=== PATIENT | female | born 1995 | race Caucasian/White ===

== ENCOUNTER 2025-08-22 10:08 | Emergency (ER) | payer OTHER, SELFPAY ==
[2025-08-22] VITALS (7 sets, daily range): BP systolic 108–140; BP diastolic 65–101; BMI 26.7
--- NOTE | 2025-08-22 10:20 | ED.GENMED ---
History of Present Illness
General
Chief Complaint: Withdrawal Symptoms
Source: patient, ambulance crew and other (half-way guards)
Exam Limitations: none
Time Seen by Provider: 08/22/25 10:12
Nursing documentation reviewed up to this point in time: agreed with
History of Present Illness
History of Present Illness:
Note:
CHIEF COMPLAINT(S)
Withdrawal symptoms likely due to substance use.
HISTORY OF PRESENT ILLNESS
The patient is a 30-year-old female presenting with symptoms suggestive of withdrawal. She is 17 weeks and has a history of using heroin and smoking illicit substances. She reports using methadone and has a history of previous pregnancies.
The patient mentions having an ultrasound at a medical facility recently, specifically the previous afternoon, and is currently experiencing withdrawal symptoms. She notes smoking substances yesterday afternoon and describes experiencing withdrawal
currently.
SOCIAL DETERMINANTS AFFECTING HEALTH
The patient reports use of heroin and smoking as well as previous use of intravenous drugs. She is currently dealing with substance use issues while being .
REVIEW OF SYSTEMS
- General: Withdrawal symptoms.
- : 17 weeks gestation.
PHYSICAL EXAM
General: appears uncomfortable, vomit in hair
Skin: Warm, dry.
Head: Normocephalic, atraumatic.
Neck: Supple, trachea midline.
Eyes, Ears, nose, mouth and throat: Oral mucosa moist.
Cardiovascular: Normal peripheral perfusion, No edema.
Respiratory: Respirations are non-labored.
Gastrointestinal: Abdomen nondistended.
Back: Normal range of motion, Normal alignment.
Musculoskeletal: Normal range of motion, normal strength.
Neurological: Alert and oriented to person, place, time, and situation, No focal neurological deficit observed.
Psychiatric: Cooperative, appropriate mood & affect.
PROBLEM LIST
Acute:
- Substance withdrawal symptoms
- management with substance use
CHRONIC MEDICAL CONDITIONS SIGNIFICANTLY AFFECTING CARE
- Substance use disorder
DIFFERENTIAL DIAGNOSIS
The Differential Diagnosis includes, in no particular order and is not limited to:
- Substance withdrawal
- complications
- Acute stress reaction
- Anxiety disorder
- Depressive disorder
- Opioid use disorder
- Tobacco use disorder
- Dehydration
- Electrolyte imbalance
- -related hormone fluctuations
CARE-UPDATE
08/22/25 - 15:31
The 30-year-old female at 17 weeks of is cleared for discharge after confirming a viable intrauterine via ultrasound. She has been successfully stabilized on a 16 mg dose of Subutex and is to be discharged to half-way with a
prescription for Subutex to continue her treatment regimen.
Disposition:
SUMMARY OF ENCOUNTER
The patient is a 30-year-old female at 17 weeks of gestation, who presented to the emergency department with symptoms indicative of opiate withdrawal. She has a history of heroin use and has been stabilized with Subutex (buprenorphine). Management
in the emergency department focused on stabilizing her withdrawal symptoms and ensuring her is progressing normally. It was confirmed that she has a viable intrauterine through recent ultrasound imaging.
DISPOSITION
Discharge to half-way.
ASSESSMENT
The patient is experiencing opiate withdrawal symptoms while being 17 weeks .
PLAN
To continue stabilizing her on a 16 mg dose of Subutex (buprenorphine) and provide patient education about the importance of adherence to the medication regimen during and after her return to half-way. She should be provided with instructions related
to Subutex and ensure reliable follow-up with obstetric care as permitted by half-way authorities.
PATIENT EDUCATION AND COUNSELING
The patient was given instructions on the importance of continuing with Subutex to manage opiate withdrawal and the significant role it plays in maintaining her and her unborn ruby health. She was advised to ensure a reliable support system is
available in half-way to aid with withdrawal management and follow-up with obstetric care as allowed.
FOLLOW-UP INSTRUCTIONS
To follow up with an criminal researcher as permitted by the half-way facility.
MEDICATION RECONCILIATION
1. Buprenorphine (Subutex) 16 mg prescribed to continue on discharge.
MEDICAL DECISION MAKING
- Number and Complexity of Problems Addressed: Chronic conditions affecting care�substance use disorder, at 17 weeks with ongoing opioid withdrawal management.
- Complexity of Data Reviewed:
Care significantly affected by Social Determinants of Health: Substance use issues and .
DIAGNOSIS
- Opiate Withdrawal (ICD-10: F11.23)
- 17 Weeks (supervision of normal , second trimester) (ICD-10: Z34.82)
Phy Exam
Physical Exam
Physical Exam:
.
Course
Orders/Labs/Results
Orders:
Orders
08/22/25 10:21
IV Insert/Care/Rem.- Treatment PRN
08/22/25 10:23
Lactated Ringers [Lr] 1,000 ml IV BOLUS
08/22/25 10:26
Buprenorphine [Subutex] 2 mg SL NOW STA
08/22/25 10:27
US Limited Urgent
Comment:
Reason For Exam: opiate withdrawal, vomiting, 17 wks preg
08/22/25 10:55
Complete Blood Count/With Diff Urgent
Comprehensive Metabolic Panel Urgent
08/22/25 13:08
Buprenorphine [Subutex] 16 mg SL NOW STA
Abnormal Lab Results
08/22/25
10:55
WBC 11.5 H 10^3/uL
(4.8-10.8)
RBC 3.32 L 10^6/uL
(4.20-5.40)
Hgb 10.2 L g/dL
(12.0-16.0)
Hct 29.7 L %
(37.0-47.0)
Plt Count 408 H 10^3/uL
(130-400)
Abs Immat Gran (auto) 0.1 H 10^3/uL
(0-0.05)
Absolute Neuts (auto) 10.2 H 10^3/uL
(1.4-6.5)
Absolute Lymphs (auto) 1.0 L 10^3/uL
(1.2-3.4)
Immature Gran % 0.6 H %
(0-0.5)
Neutrophils % 88.3 H %
(42.2-75.2)
Lymphocytes % 8.7 L %
(20.5-51.1)
Creatinine 0.4 L mg/dL
(0.6-1.0)
Glucose 105 H mg/dl
(70-99)
08/22/25 10:55
08/22/25 10:55
Vital Signs
Initial and Last Documented VS:
Initial Vital Signs
Temp Pulse Resp BP Pulse Ox
98.7 F 86 16 123/101 99
08/22/25 10:11 08/22/25 10:11 08/22/25 10:11 08/22/25 10:11 08/22/25 10:11
Last Documented Vital Signs
Temp Pulse Resp BP Pulse Ox
98.7 F 83 17 129/66 99
08/22/25 10:11 08/22/25 15:00 08/22/25 15:00 08/22/25 15:00 08/22/25 15:00
*Pulse Oximetry
SaO2: 99
Oxygen Mode of Delivery: Room air
Patient hypoxic: no
*Critical Care Note
Total Time (30-74mins, 75-104mins- exclusive of procedures): Not Applicable
ED Attending Note
-
Portions of this chart may have been created with voice recognition software.� Occasional wrong word or��sound alike� substitutions may have occurred due to the inherent limitations of voice recognition software.
Discharge Plan
Departure
Patient Disposition: Retirement
Date of Disposition: 08/22/25
Time of Disposition: 15:06
Patient with high blood pressure during this ER visit?: Yes
Condition: Good
Discharge Problem:
Opiate withdrawal,
Instructions: - The Fifth Month, Opioid withdrawal - ED (DC)
Prescriptions:
New
buprenorphine HCl 8 mg tablet, sublingual
16 mg sublingual DAILY Qty: 14 0RF
No Action
clonidine HCl 0.1 mg Tablet
0.1 mg PO DIRECTED
Rx Instructions:
0.1mg tid on days 08/22/25-/08/25/25 then 0.1mg bid on days 08/26/25-08/27/25 then 0.05mg bid on days 08/25-08/29/25
ondansetron HCl [Zofran] 4 mg Tablet
4 mg PO TIDPRN PRN (Reason: nausea)
loperamide 2 mg Tablet
2 mg PO TIDPRN PRN (Reason: diarrhea)
PNV no.95-ferrous fumarate-FA [] 28 mg iron- 800 mcg Tablet
1 tab PO DAILY
Referrals:
[facility], [facility] - Call in 1-3 days for appt
[facility], [Active, Gynecology] - Call in 1-3 days for appt
Activity Restrictions/Additional Instructions:
Recommend Subutex 16 mcg twice daily to prevent opiate withdrawal
Interventions
Interventions:
*Risk Screen - Suicide Last Done: 08/22/25 10:22
*General Assessment Last Done: 08/22/25 10:22
*Neglect/Abuse Screening Last Done: 08/22/25 10:22
*ED- Fall Risk Assessment Last Done: 08/22/25 10:24
*ED COVID-19 Vaccine History Last Done: 08/22/25 10:22
ED- Neurological Assessment Last Done: 08/22/25 10:26
ED-Psychological Assessment Last Done: 08/22/25 10:26
Discharge Date and Time
Print Language: ESTONIAN
[2025-08-22] MEDS: SUBUTEX 2 MG SL (10:31)
[2025-08-22] MEDS: LR 1000 IV (10:56)
[2025-08-22 11:02] LABS: Hematocrit 29.7 % (37.0-47.0); Hemoglobin 10.2 g/dL (12.0-16.0); Mean Corp Hgb Conc. 34.3 g/dL (33.0-37.0); Mean Corpuscular Volume 89.5 fL (81.0-99.0); Nucleated Red Blood Cells % 0 %; Platelet Count 408 10^3/uL (130-400); Red Cell Dist. Width 12.8 % (11.5-14.5)
[2025-08-22 11:38] LABS: ALT (SGPT) 20 U/L (0-35); AST (SGOT) 21 U/L (14-36); Albumin 3.7 g/dl (3.5-5.0); Alkaline Phosphatase 119 U/L (38-126); Blood Urea Nitrogen 8 mg/dl (7-17); Calcium 9.9 mg/dl (8.4-10.2); Carbon Dioxide 25 mmol/L (22-30); Chloride 106 mmol/L (98-107); Estimated Creatinine Clearance 125 ml/min; Glucose 105 mg/dl (70-99); Potassium 3.9 mmol/L (3.5-5.1); Sodium 138 mmol/L (135-145); Total Protein 7.2 g/dl (6.3-8.2); eGFR > 60.00
[2025-08-22] MEDS: SUBUTEX 16 MG SL (13:32)
== END 2025-08-22 16:36 ==
LOC: EMR 10:08
PROVIDERS: EMERGENCY PHYSICIAN Emergency Medicine
DX: O99.322 Drug use complicating pregnancy, second trimester (principal); F11.23 Opioid dependence with withdrawal; Z3A.17 17 weeks gestation of pregnancy
CPT/HCPCS: 96360; 99284; 76815; 80053; 85025

== ENCOUNTER 2025-08-25 03:16 | Emergency (ER) | payer OTHER, SELFPAY ==
[2025-08-25] VITALS (9 sets, daily range): BP systolic 115–139; BP diastolic 69–95
[2025-08-25] MEDS: ZOFRAN 4 MG IV (04:27)
[2025-08-25 04:36] LABS: Hematocrit 33.3 % (37.0-47.0); Hemoglobin 11.4 g/dL (12.0-16.0); Mean Corp Hgb Conc. 34.2 g/dL (33.0-37.0); Mean Corpuscular Volume 91.5 fL (81.0-99.0); Nucleated Red Blood Cells % 0 %; Platelet Count 376 10^3/uL (130-400); Red Cell Dist. Width 13.1 % (11.5-14.5)
--- NOTE | 2025-08-25 04:40 | ED.GENMED ---
History of Present Illness
General
Chief Complaint: Problems
Source: patient
Exam Limitations: none
Time Seen by Provider: 08/25/25 03:33
Nursing documentation reviewed up to this point in time: agreed with
History of Present Illness
History of Present Illness:
30 y/o F 17 weeks preg
from snf
vag bleeding tonight just about 1 hour ago, soaked thruogh underwear sponateneously
no pain
no lightheadedness
no clots
pt was here 3 days ago for opiate withdrawal
she was spotting then too
had US cofirming IUP
on buprenorphine
Review of Systems
Review of Systems
Allergies reviewed?: Yes
All Other Systems: Not applicable
Phy Exam
Physical Exam
Physical Exam:
GENERAL: Alert , in no apparent distress
EYE: pupils equal and reactive
NECK: Supple
ENT: o/p clr, mmm.
CARDIAC: Regular rate and rhythm .
LUNGS: Clear breath sounds bilaterally, no acute respiratory distress, no wheezes/rales/rhonchi
ABDOMEN: Soft, without focal tenderness, no r/g, no cvat, normal bowel sounds
: mild blood in vault, dark red, no clots
ex os fingertip int os close
dno tendnrees
no lacerations
NEUROLOGICAL: Alert and oriented, no focal neuro deficits
SKIN: Warm and dry, skin intact.
MUSCULOSKELETAL: No edema, well perfused. neg jacobo's sign
PSYCH: Normal and appropriate interaction.
Course
Orders/Labs/Results
Orders:
Orders
08/25/25 03:33
US 2nd/3rd Trimester Urgent
Comment:
Reason For Exam: 17 weeks preg bleeding
08/25/25 04:18
ABO [Blood Group&Type] Urgent
Gel Atypical Antibody Screen Urgent
BBK Wristband Number:
Complete Blood Count/With Diff Urgent
Comprehensive Metabolic Panel Urgent
08/25/25 04:22
Ondansetron Injectable [Zofran] 4 mg IV NOW STA
08/25/25 05:43
Rho (D) Immune Globulin [Rhogam] 300 mcg IM ONCE ONE
08/25/25 05:44
* Blood Bank Products Urgent
Blood Bank Products: *Rhogam - Full Dose
Quantity: 300mg
Transfuse Today: Yes
Reason: Other
Other reason: Vaginal bleeding/miscarriage
08/25/25 05:46
Add On- LAB Urgent
Tests Added?: Type+Screen
Abnormal Lab Results
08/25/25
04:18
RBC 3.64 L 10^6/uL
(4.20-5.40)
Hgb 11.4 L g/dL
(12.0-16.0)
Hct 33.3 L %
(37.0-47.0)
MCH 31.3 H pg
(27.0-31.0)
Abs Immat Gran (auto) 0.1 H 10^3/uL
(0-0.05)
Immature Gran % 1.0 H %
(0-0.5)
Sodium 134 L mmol/L
(135-145)
Creatinine 0.4 L mg/dL
(0.6-1.0)
08/25/25 04:18
08/25/25 04:18
Vital Signs
Initial and Last Documented VS:
Initial Vital Signs
Temp Pulse Resp BP Pulse Ox
36.6 C 67 16 132/92 96
08/25/25 03:22 08/25/25 03:22 08/25/25 03:22 08/25/25 03:22 08/25/25 03:22
Last Documented Vital Signs
Temp Pulse Resp BP Pulse Ox
36.6 C 69 12 115/69 95
08/25/25 03:22 08/25/25 04:30 08/25/25 04:30 08/25/25 04:00 08/25/25 04:41
Information
Weeks gestation: Weeks: (17)
Location: Location:
MDM/Problems Addressed
Differential Diagnosis Includes:
threatened ab, placenta previa
MDM/Problems Addressed:
30 y/o F
here with vag bleeing in preg 17 weeks
unknown RH status
bleeding is mild here
os closed
stsbale vitals, bp was 130/80 and came down
hg sable
US shows no previa, os closed
d/w dr. randall
confirm Rh status then d/c back to snf, pelvic rest
08/25/2025 0559 AM
Rh-. Patient confirms she was not given RhoGAM during this yet. A dose of RhoGAM ordered after consultation with CONVEYOR WORKER. Discharged back to snf after
*Pulse Oximetry
SaO2: 95
Oxygen Mode of Delivery: Room air
Patient hypoxic: no
*Critical Care Note
Total Time (30-74mins, 75-104mins- exclusive of procedures): Not Applicable
ED Attending Note
-
Portions of this chart may have been created with voice recognition software.� Occasional wrong word or��sound alike� substitutions may have occurred due to the inherent limitations of voice recognition software.
Discharge Plan
Departure
Patient Disposition: Intermediate
Date of Disposition: 08/25/25
Time of Disposition: 05:45
Patient with high blood pressure during this ER visit?: No
Condition: Fair
Covid-19: Not Applicable
Discharge Problem:
Threatened miscarriage
Instructions: Threatened Miscarriage (DC)
Prescriptions:
No Action
clonidine HCl 0.1 mg Tablet
0.1 mg PO DIRECTED
Rx Instructions:
0.1mg tid on days 08/22/25-/08/25/25 then 0.1mg bid on days 08/26/25-08/27/25 then 0.05mg bid on days 08/25-08/29/25
ondansetron HCl [Zofran] 4 mg Tablet
4 mg PO TIDPRN PRN (Reason: nausea)
loperamide 2 mg Tablet
2 mg PO TIDPRN PRN (Reason: diarrhea)
PNV no.95-ferrous fumarate-FA [] 28 mg iron- 800 mcg Tablet
1 tab PO DAILY
buprenorphine HCl 8 mg tablet, sublingual
16 mg sublingual DAILY Qty: 14 0RF
Referrals:
UNKNOWN,NO INTERVIEW [Family Provider]
Activity Restrictions/Additional Instructions:
YOUR ULTRASOUND SHOWS YOUR BABY HAS NORMAL HEART RATE
THERE IS NO OBVIOUS CAUSE FOR YOUR BLEEDING
PELVIC REST (NOTHING IN VAGINA)
You were given a dose of RhoGAM because you are Rh-
FOLLOW UP WIHT OB
Interventions
Interventions:
*Risk Screen - Suicide Last Done: 08/25/25 03:28
*General Assessment Last Done: 08/25/25 03:23
*Neglect/Abuse Screening Last Done: 08/25/25 03:28
*ED- Fall Risk Assessment Last Done: 08/25/25 03:28
*ED COVID-19 Vaccine History Last Done: 08/25/25 03:28
ED-Female Genitourinary Assessment Last Done: 08/25/25 03:34
Discharge Date and Time
Print Language: HEBREW
[2025-08-25 04:56] LABS: ALT (SGPT) 18 U/L (0-35); AST (SGOT) 21 U/L (14-36); Albumin 3.6 g/dl (3.5-5.0); Alkaline Phosphatase 97 U/L (38-126); Blood Urea Nitrogen 9 mg/dl (7-17); Calcium 9.5 mg/dl (8.4-10.2); Carbon Dioxide 23 mmol/L (22-30); Chloride 105 mmol/L (98-107); Glucose 88 mg/dl (70-99); Potassium 4.0 mmol/L (3.5-5.1); Sodium 134 mmol/L (135-145); Total Protein 7.1 g/dl (6.3-8.2); eGFR > 60.00
--- NOTE | 2025-08-25 06:27 | ED.GENMED ---
History of Present Illness
General
Chief Complaint: Problems
Time Seen by Provider: 08/25/25 03:33
History of Present Illness
History of Present Illness:
EE MDM
Phy Exam
Physical Exam
Physical Exam:
SEE MDM
Course
Orders/Labs/Results
Orders:
Orders
08/25/25 03:33
US 2nd/3rd Trimester Urgent
Comment:
Reason For Exam: 17 weeks preg bleeding
08/25/25 04:18
ABO [Blood Group&Type] Urgent
Gel Atypical Antibody Screen Urgent
BBK Wristband Number:
Complete Blood Count/With Diff Urgent
Comprehensive Metabolic Panel Urgent
08/25/25 04:22
Ondansetron Injectable [Zofran] 4 mg IV NOW STA
08/25/25 05:43
Rho (D) Immune Globulin [Rhogam] 300 mcg IM ONCE ONE
08/25/25 05:44
* Blood Bank Products Urgent
Blood Bank Products: *Rhogam - Full Dose
Quantity: 300mg
Transfuse Today: Yes
Reason: Other
Other reason: Vaginal bleeding/miscarriage
08/25/25 05:46
Add On- LAB Urgent
Tests Added?: Type+Screen
Abnormal Lab Results
08/25/25
04:18
RBC 3.64 L 10^6/uL
(4.20-5.40)
Hgb 11.4 L g/dL
(12.0-16.0)
Hct 33.3 L %
(37.0-47.0)
MCH 31.3 H pg
(27.0-31.0)
Abs Immat Gran (auto) 0.1 H 10^3/uL
(0-0.05)
Immature Gran % 1.0 H %
(0-0.5)
Sodium 134 L mmol/L
(135-145)
Creatinine 0.4 L mg/dL
(0.6-1.0)
Antibody Screen Positive A
(Negative)
08/25/25 04:18
08/25/25 04:18
Vital Signs
Initial and Last Documented VS:
Initial Vital Signs
Temp Pulse Resp BP Pulse Ox
36.6 C 67 16 132/92 96
08/25/25 03:22 08/25/25 03:22 08/25/25 03:22 08/25/25 03:22 08/25/25 03:22
Last Documented Vital Signs
Temp Pulse Resp BP Pulse Ox
36.6 C 88 16 122/88 96
08/25/25 03:22 08/25/25 06:00 08/25/25 06:00 08/25/25 06:00 08/25/25 06:00
Information
Weeks gestation: Weeks: (17)
Location: Location:
*Pulse Oximetry
SaO2: 96
Oxygen Mode of Delivery: Room air
Patient hypoxic: no (9*6)
*Critical Care Note
Total Time (30-74mins, 75-104mins- exclusive of procedures): Not Applicable
ED Attending Note
-
Portions of this chart may have been created with voice recognition software.� Occasional wrong word or��sound alike� substitutions may have occurred due to the inherent limitations of voice recognition software.
Discharge Plan
Departure
Patient Disposition: Halfway
Date of Disposition: 08/25/25
Time of Disposition: 05:45
Patient with high blood pressure during this ER visit?: No
Condition: Fair
Covid-19: Not Applicable
Discharge Problem:
Threatened miscarriage
Instructions: Threatened Miscarriage (DC)
Prescriptions:
No Action
clonidine HCl 0.1 mg Tablet
0.1 mg PO DIRECTED
Rx Instructions:
0.1mg tid on days 08/22/25-/08/25/25 then 0.1mg bid on days 08/26/25-08/27/25 then 0.05mg bid on days 08/25-08/29/25
ondansetron HCl [Zofran] 4 mg Tablet
4 mg PO TIDPRN PRN (Reason: nausea)
loperamide 2 mg Tablet
2 mg PO TIDPRN PRN (Reason: diarrhea)
PNV no.95-ferrous fumarate-FA [] 28 mg iron- 800 mcg Tablet
1 tab PO DAILY
buprenorphine HCl 8 mg tablet, sublingual
16 mg sublingual DAILY Qty: 14 0RF
Referrals:
UNKNOWN,NO INTERVIEW [Family Provider]
Activity Restrictions/Additional Instructions:
YOUR ULTRASOUND SHOWS YOUR BABY HAS NORMAL HEART RATE
THERE IS NO OBVIOUS CAUSE FOR YOUR BLEEDING
PELVIC REST (NOTHING IN VAGINA)
You were given a dose of RhoGAM because you are Rh-
FOLLOW UP WIHT OB
Interventions
Interventions:
*Risk Screen - Suicide Last Done: 08/25/25 03:28
*General Assessment Last Done: 08/25/25 03:23
*Neglect/Abuse Screening Last Done: 08/25/25 03:28
*ED- Fall Risk Assessment Last Done: 08/25/25 03:28
*ED COVID-19 Vaccine History Last Done: 08/25/25 03:28
ED-Female Genitourinary Assessment Last Done: 08/25/25 03:34
Discharge Date and Time
Print Language: UGANDAN
[2025-08-25] MEDS: RHOGAM 300 MCG IM (08:44)
== END 2025-08-25 08:55 ==
LOC: EMR 03:16
PROVIDERS: Physician Assistant; EMERGENCY PHYSICIAN Emergency Medicine
DX: O20.0 Threatened abortion (principal); O36.0920 Maternal care for other rhesus isoimmunization, second trimester, not applicable or unspecified; Z29.13 Encounter for prophylactic Rho(D) immune globulin; Z3A.18 18 weeks gestation of pregnancy
CPT/HCPCS: 99284; 96374; 96372; 76805; 80053; 85025; 86850; 86870; 86900; 86901; J2790

== ENCOUNTER 2025-08-26 10:13 | Emergency (ER) | payer OTHER, SELFPAY ==
[2025-08-26 10:30] VITALS: BP 131/85; BMI 21.0
--- NOTE | 2025-08-26 10:41 | ED.GENMED ---
History of Present Illness
General
Chief Complaint: Vaginal Bleeding
Source: patient
Exam Limitations: none
Time Seen by Provider: 08/26/25 10:18
Nursing documentation reviewed up to this point in time: agreed with
History of Present Illness
History of Present Illness:
Note:
CHIEF COMPLAINT(S)
Bleeding and need for prescription management.
HISTORY OF PRESENT ILLNESS
The patient, a 30-year-old female, presents with a complaint of bleeding. She reports changing pads every two to three hours, but is not soaking through them. The bleeding is consistent with her previous experiences and has not shown any new or
concerning changes. Additionally, the patient had a recent consultation and was informed that the bleeding might persist for a short while.
The patient has been utilizing a prescription for Subutex, which was issued seven days ago. There is concern about continuity of prescription, and she is worried about potential withdrawal symptoms if medication is not continued. The patient states
that previous dose reductions have not been effective in managing her withdrawal symptoms.
The patient also mentioned prior treatment with Rho(D) immune globulin (RhoGAM) due to blood type incompatibility and the presence of antibodies. An ultrasound was conducted recently, but she is unclear about the need for another unless necessary.
SOCIAL DETERMINANTS AFFECTING HEALTH
The patient is concerned about her ability to continue accessing her medication and is planning to follow up with a local provider ([facility]). This context suggests a reliance on a specific healthcare system for her prescriptions and management.
PHYSICAL EXAM
General: Alert, no acute distress.
Skin: Warm, dry.
Head: Normocephalic, atraumatic.
Neck: Supple, trachea midline.
Eye Ears, Nose, Mouth, and Throat: Oral mucosa moist.
Cardiovascular: Normal peripheral perfusion, no edema.
Respiratory: Respirations are non-labored.
Gastrointestinal: Abdomen nondistended.
Back: Normal range of motion, normal alignment.
Musculoskeletal: Normal range of motion, normal strength.
Neurological: Alert and oriented to person, place, time, and situation, no focal neurological deficit observed.
Psychiatric: Cooperative, appropriate mood & affect.
PROBLEM LIST
Acute:
- Vaginal bleeding
- Possible withdrawal management from Subutex
Chronic:
- Antibody presence due to blood type incompatibility
PLAN
1. Continue monitoring the bleeding and ensure that it does not worsen.
2. Prescription of Subutex to be extended for seven more days to prevent withdrawal symptoms.
3. Follow-up planned with local provider ([facility]) for continued management.
4. Observation related to RhoGAM and blood compatibility to be maintained, with additional screening if necessary in future interventions.
DIFFERENTIAL DIAGNOSIS
The differential diagnosis includes, in no particular order and is not limited to:
1. Dysfunctional Uterine Bleeding
2. Menometrorrhagia
3. Coagulation Disorder
4. -related Bleeding
5. Medication-induced Bleeding
6. Endometrial Polyp
7. Subchorionic Hemorrhage
8. Infection (e.g., endometritis)
9. Cervical Lesion
10. Blood Type Incompatibility Reaction
Note:
CARE-UPDATE
08/26/25 - 14:39
Viable intrauterine confirmed via ultrasound. No signs of bleeding or placenta previa observed. Patient stable and cleared for discharge.
Disposition:
SUMMARY OF ENCOUNTER
The patient, a 30-year-old female, presented with vaginal bleeding and a concern for threatened miscarriage. An evaluation indicated stable vital signs, and no ultrasound evidence of placenta previa or subchorionic hemorrhage was found. The patient
had received Rho(D) immune globulin (RhoGAM) this week due to RH-negative blood type.
DISPOSITION
Discharged to shelter.
ASSESSMENT
Threatened miscarriage with vaginal bleeding; RH-negative status requiring RhoGAM administration.
PLAN
Continuance of Subutex prescription and follow-up care with obstetrics/gynecology (OB).
MEDICATION RECONCILIATION
1. Subutex (buprenorphine), continued as per previous prescription.
MEDICAL DECISION MAKING
-Complexity of Data Reviewed: Chronic conditions affecting care including RH incompatibility and need for withdrawal management from Subutex. Differential diagnosis considered included dysfunctional uterine bleeding, menometrorrhagia, coagulation
disorder, -related bleeding, medication-induced bleeding, among others.
-Data:
Category 1
My independent interpretation of available data ruled out significant concerns such as placenta previa and subchorionic hemorrhage.
Category 3
Discussion of management included reviewing the need for ongoing medication management with Subutex and follow-up with OB for continued care and management of bleeding.
-Risk:
Prescription management for Subutex was a critical component given the risk of withdrawal symptoms. Consideration of observation and potential escalation of care was addressed, but the patients current stable status supported safe discharge with
follow-up care. Care affected by Social Determinants of Health: reliance on specific healthcare systems for prescription access.
DIAGNOSIS
- Threatened Miscarriage (O20.0)
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
Phy Exam
Physical Exam
Physical Exam:
.
Course
Orders/Labs/Results
Orders:
Orders
08/26/25 10:38
US Limited Urgent
Comment:
Reason For Exam: vaginal bleeding 18 wks preg
Vital Signs
Initial and Last Documented VS:
Initial Vital Signs
Temp Pulse Resp BP Pulse Ox
98.1 F 82 16 131/85 99
08/26/25 10:30 08/26/25 10:30 08/26/25 10:30 08/26/25 10:30 08/26/25 10:30
Last Documented Vital Signs
Temp Pulse Resp BP Pulse Ox
98.1 F 74 10 111/65 98
08/26/25 10:30 08/26/25 13:15 08/26/25 13:15 08/26/25 13:14 08/26/25 13:15
*Pulse Oximetry
SaO2: 98
Oxygen Mode of Delivery: Room air
Patient hypoxic: no
*Critical Care Note
Total Time (30-74mins, 75-104mins- exclusive of procedures): Not Applicable
ED Attending Note
-
Portions of this chart may have been created with voice recognition software.� Occasional wrong word or��sound alike� substitutions may have occurred due to the inherent limitations of voice recognition software.
Discharge Plan
Departure
Patient Disposition: [facility]
Date of Disposition: 08/26/25
Time of Disposition: 13:11
Patient with high blood pressure during this ER visit?: No
Condition: Good
Discharge Problem:
Threatened miscarriage
Instructions: Threatened Miscarriage (DC)
Prescriptions:
No Action
clonidine HCl 0.1 mg Tablet
0.1 mg PO DIRECTED
Rx Instructions:
0.1mg tid on days 08/22/25-/08/25/25 then 0.1mg bid on days 08/26/25-08/27/25 then 0.05mg bid on days 08/25-08/29/25
ondansetron HCl [Zofran] 4 mg Tablet
4 mg PO TIDPRN PRN (Reason: nausea)
loperamide 2 mg Tablet
2 mg PO TIDPRN PRN (Reason: diarrhea)
PNV no.95-ferrous fumarate-FA [] 28 mg iron- 800 mcg Tablet
1 tab PO DAILY
buprenorphine HCl 8 mg tablet, sublingual
16 mg sublingual DAILY Qty: 14 0RF
Referrals:
[facility] [Family Provider, General]
Laura William DO [Active, Gynecology] - Call in 1-3 days for appt
Activity Restrictions/Additional Instructions:
Return for any concerns. Some light bleeding may occur for several days. If this worsens or you pass clots, return to hospital. Continue treatment with subutex 16 mg twice a day.
Interventions
Interventions:
*Risk Screen - Suicide Last Done: 08/26/25 10:30
*General Assessment Last Done: 08/26/25 10:30
*Neglect/Abuse Screening Last Done: 08/26/25 10:30
*ED- Fall Risk Assessment Last Done: 08/26/25 10:30
*ED COVID-19 Vaccine History Last Done: 08/26/25 10:30
*Nursing Disposition Last Done: 08/26/25 14:12
ED-Female Genitourinary Assessment Last Done: 08/26/25 10:30
Discharge Date and Time
Discharge Date/Time: 08/26/25 14:13
Print Language: ALBANIAN
[2025-08-26 13:14] VITALS: BP 111/65
== END 2025-08-26 14:13 ==
LOC: EMR 10:13
PROVIDERS: EMERGENCY PHYSICIAN Emergency Medicine
DX: O20.0 Threatened abortion (principal); Z3A.18 18 weeks gestation of pregnancy
CPT/HCPCS: 99284; 76815

== ENCOUNTER → 2025-10-04 14:39 | Outpatient (REF) | payer OTHER, SELFPAY | LOC: PNTC 14:39 | PROVIDERS: ATTENDING PHYSICIAN Obstetrics & Gynecology | DX: O46.92 Antepartum hemorrhage, unspecified, second trimester (principal); Z36.3 Encounter for antenatal screening for malformations; O09.92 Supervision of high risk pregnancy, unspecified, second trimester; O26.852 Spotting complicating pregnancy, second trimester | CPT/HCPCS: 76816 ==